=== PATIENT | female | born 1975 | race Caucasian/White ===

== ENCOUNTER → 2017-01-08 | Outpatient (CLI) | payer BC ==
[~2017-01-08] MED LIST: ASCA500; HYDCR1CL; OMEG10007 PO; PRENTAB26 PO
[2017-01-08 10:17] LABS: ALKALINE PHOSPHATASE 54 U/L (45-117); ALT/SGPT 23 U/L (12-78); AST/SGOT 16 U/L (15-37); BLOOD UREA NITROGEN 14 mg/dl (7-18); BUN/CREATININE RATIO 18.5 (10-20); CALCIUM 9.2 mg/dl (8.5-10.1); CARBON DIOXIDE 27 mmol/L (21-32); CHLORIDE 109 mmol/L (98-107); CREATININE 0.73 mg/dl (0.60-1.20); GLUCOSE 53 mg/dl (70-99); PHOSPHORUS 2.7 mg/dl (2.5-4.9); POTASSIUM 3.6 mmol/L (3.5-5.1); SODIUM 142 mmol/L (136-145)
[2017-01-13 04:25] LABS: JCV ANTIBODY NEGATIVE; JCV INDEX 0.12
--- NOTE | 2017-01-13 07:22 | CODING QUERY MEDICAL NECESSITY ---
SUPPORTING DIAGNOSIS NEEDED Dr. Duque, A supporting diagnosis is required for the test/procedure performed on this patient in order for us to be reimbursed by the patient's insurance. Please provide a supporting diagnosis for the following test/procedure listed below next to the test name along with your signature. *If there is no additional diagnosis for this patient that would support the following test/procedure please document that below next to the test/procedure. Test(s)/Procedure(s) that require a supporting diagnosis: * ([id number]) VITAMIN D ASSAY DIAGNOSIS: * ([id number]) B12 VITAMIN LEVEL DIAGNOSIS: DATE OF SERVICE: 01/08/17 Provider Signature: Date: Thank you Alessandro Fulton [facility] Information Management Once completed, please kindly fax back to [phone] For questions please call [phone]
== END | disposition home or self-care (01) ==
LOC: C.LAB 08:20
PROVIDERS: ATTEND Psychiatry & Neurology Neurology
DX: G35 Multiple sclerosis (principal); R79.89 Other specified abnormal findings of blood chemistry; E55.9 Vitamin D deficiency, unspecified; M81.0 Age-related osteoporosis without current pathological fracture

== ENCOUNTER → 2017-01-15 | Outpatient (CLI) | payer BC ==
--- NOTE | 2017-01-15 16:30 | DIAGNOSTIC IMAGING REPORT ---
RIGHT KNEE 3 VIEWS CLINICAL HISTORY: PAIN Right pain COMPARISON: None. DISCUSSION: The bones and joint spaces appear intact. There is no evidence of fracture, dislocation or bony disease. There is no evidence for soft tissue swelling. IMPRESSION: Negative study. Electronically signed by: Leon Dixon M.D. 01/15/2017 4:29 PM Dictated Date/Time: 01/15/2017 4:29 PM
== END | disposition home or self-care (01) ==
LOC: C.RADBC 15:37
PROVIDERS: ATTEND Family Medicine
DX: M25.561 Pain in right knee (principal)

== ENCOUNTER → 2017-03-31 | Outpatient (CLI) | payer BC ==
--- NOTE | 2017-04-01 12:45 | MAMMOGRAPHY REPORT ---
BILATERAL FIRST EVER DIGITAL SCREENING MAMMOGRAM TOMOSYNTHESIS WITH CAD: 03/31/2017 CLINICAL HISTORY: Baseline examination. TECHNIQUE: Bilateral breast tomosynthesis in addition to standard 2D mammography was performed. Curre nt study was also evaluated with a Computer Aided Detection (CAD) system. COMPARISON: No prior exams were available for comparison. BREAST COMPOSITION: There are scattered areas of fibroglandular density in both breasts. FINDINGS: There is a 15 x 16 x 19 mm circumscribed round to oval mass in the 9:00 posterior left laura ast. Although this could represent a cyst, definitive characterization with targeted ultrasound and possible additional mammographic views is recommended. There are scattered benign-appearing punctate microcalcifications bilaterally. No other suspicious ma ss, architectural distortion or cluster of microcalcifications is seen. IMPRESSION: ACR BI-RADS CATEGORY 0: INCOMPLETE EVALUATION: NEED ADDITIONAL IMAGING EVALUATION The circumscribed 19 mm mass in the left 9:00 breast needs additional evaluation. The patient will be called to schedule an appointment. Approximately 10% of breast cancers are not detected with mammography. A negative mammographic report should not delay biopsy if a clinically suggestive mass is present. Yuko Espinoza M.D. ay/:03/31/2017 16:12:29 Machine Staker: Vanessa PHILLIPS)(Raymundo), [facility] letter sent: Addl Imaging 0 BI-RADS Code: ACR BI-RADS Category 0: Incomplete Evaluation: Need Additional Imaging Evaluation
== END | disposition home or self-care (01) ==
LOC: C.MAMM 10:06
PROVIDERS: ATTEND Family Medicine
DX: Z12.31 Encounter for screening mammogram for malignant neoplasm of breast (principal); N63 Unspecified lump in breast

== ENCOUNTER → 2017-04-08 | Outpatient (CLI) | payer BC ==
--- NOTE | 2017-04-09 12:47 | MAMMOGRAPHY REPORT ---
ULTRASOUND OF LEFT BREAST: 04/08/2017 CLINICAL HISTORY: 42 year-old woman called back from baseline screening mammogram for a 19 x 16 x 15 mm circumscribed mass in the 9:00 left breast. Patient also reported deep nonfocal intermittent left breast pain and an electrical sensation near the edge of the breast that is not present today. COMPARISON: Comparison is made to exam dated: 03/31/2017 mammogram - [facility]. FINDINGS: Targeted ultrasound was performed throughout the left breast with particular attention to t he 9:00 axis in the area of mammographic mass. In the 9:00 left breast, periareolar to 1 cm from the nipple, there is a hypoechoic solid circumscribed mass measuring 15.2 x 9.4 x 16.3 mm. No significa nt increased vascularity. Orientation is parallel. This most likely represents a fibroadenoma, but definitive characterization with tissue sampling is recommended to exclude phyllodes. Additional ultrasound was performed throughout the remainder of the left breast for the pain describe d by the patient. In the 8:00 periareolar left breast, there is a superficial parallel hypoechoic so lid mass versus focal area of stromal fibrosis measuring 4.0 x 7.0 x 2.8 mm. A benign anechoic simpl e cyst is identified in the 12:00 periareolar left breast measuring 2.8 x 2.4 x 3.2 mm. No other piotr picious solid mass is seen. Pending benign pathology results from the biopsy in the 9:00 axis, would recommend a follow-up targeted ultrasound in the 8:00 periareolar left breast to ensure stability of the smaller hypoechoic mass. IMPRESSION: ACR BI-RADS CATEGORY 4A: LOW SUSPICION FOR MALIGNANCY - FOLLOW-UP RECOMMENDED 1. Ultrasound guided core biopsy is recommended for an indeterminate solid 16 mm mass in the 9:00 pe riareolar left breast, that could represent a fibroadenoma. The patient has MS and does not wish to have a biopsy marker clip placed during the biopsy. 2. Pending benign pathology results, recommend a follow-up targeted left breast ultrasound in the 8: 00 periareolar axis, to ensure stability of a parallel hypoechoic solid-appearing mass versus focal s tromal fibrosis measuring 4 x 7 x 3 mm. These results and recommendations were discussed with the patient and her at the time of the exam. She tentatively scheduled the left breast biopsy prior to leaving our department. Yuko Espinoza M.D. ay/:04/08/2017 14:19:10 Bisque Ware Dipper: Iris MARTINEZ(R)(M), [facility] letter sent: Abnormal 4/5 BI-RADS Code: ACR BI-RADS Category 4A: Low Suspicion For Malignancy
== END | disposition home or self-care (01) ==
LOC: C.MAMM 13:37
PROVIDERS: ATTEND Family Medicine
DX: N63 Unspecified lump in breast (principal); R92.2 Inconclusive mammogram

== ENCOUNTER → 2017-04-10 | Outpatient (CLI) | payer BC ==
--- NOTE | 2017-04-10 13:41 | Discharge Instructions ---
Discharge Instructions Procedure Procedure Date: Apr 10, 2017. Reason for visit: Left Mass. Discharge Discharge Date: Apr 10, 2017. Discharge Diagnosis: status post breast biopsy Instructions Activity Recommendations: Additional Limitations (see below) Return to School/Work: no limitations Recommended Home Diet: No Limitations Provider Instructions: ACTIVITY RECOMMENDATIONS: * No lifting, pushing, pulling or exercising the affected side for three days. RETURN TO SCHOOL/WORK: * You may return to work/school after the procedure, but do not perform any strenuous activities for 24 to 48 hours. MEDICATIONS: * Tylenol (two 325 mg) every four to six hours if needed for mild pain (if not allergic to Tylenol). DIET: * Resume previous diet. SPECIAL CARE INSTRUCTIONS: * Keep biopsy site dry for 24 hours. May shower after 24 hours, but do not soak (bathe) incision. * May remove Tegaderm (plastic patch) tomorrow AFTER showering. * Leave the steri-strips on for one week. Allow the steri-strips to fall off by themselves. If not off after one week, you may remove them. You may place a Bandaid crosswise over the strips, if desired. * Apply ice 10 minutes on and 10 minutes off as needed. * Wear a bra at bedtime to sleep more comfortably for 2-3 days. * Your referring physician should have the results after approximately 5 to 7 business days. * Call for unusual bleeding, fever, drainage, etc or if you have any questions call during normal business hours or after hours call Dr Henderson, . FOLLOW UP VISIT: Follow-up with Referring Physician as scheduled. Allergies Coded Allergies: No Known Allergies (Unverified , 07/17/14) Ruddy Chen Recommendations: Call your doctor if: * Temperature above 101 degrees * Pain not relieved by pain medicine ordered * There is increased drainage or redness from any incision * You have any unanswered questions or concerns. Your Doctors Instructions noted above were prepared by provider Ronna Henderson. Patient Signature Section: Patient Instructions Signature Page Lety Chuck Patient (or Guardian) Signature/Date: I have read and understand the instructions given to me by my caregivers. Caregiver/RN/Doctor Signature/Date: The above-named patient and/or guardian has received patient instructions on this date. + Original Patient Signature Page (only) stays with chart. Please make copy for patient.
--- NOTE | 2017-04-13 12:30 | MAMMOGRAPHY REPORT ---
THIS REPORT HAS BEEN AMENDED. ULTRASOUND GUIDED BIOPSY LEFT BREAST: 04/10/2017 CLINICAL HISTORY: Left 9:00 breast mass. PATIENT CONSENT: The procedure, risks and benefits were discussed with the patient and informed writt en consent was obtained. A timeout was performed immediately prior to the procedure. PROCEDURE DESCRIPTION: With ultrasound guidance, aseptic technique, and lidocaine as the local anesth etic (1% lidocaine to anesthetize the skin and 1% lidocaine with epinephrine to anesthetize the deepe r tissues), the mass of concern in the left 9:00 breast was sampled 3 times with a 14-gauge Achieve b iopsy needle. Direct pressure was applied to the site immediately post procedure and hemostasis was achieved. A biopsy marker clip was not placed due to patient request. The patient tolerated the pro cedure without complication. She was given wound care instructions. The specimens were sent to patho logy for analysis. COMPARISON: Comparison is made to exams dated: 04/08/2017 ultrasound and 03/31/2017 mammogram - [facility]. IMPRESSION: ULTRASOUND GUIDED BIOPSY Ultrasound guided core needle biopsy of the left 9:00 breast mass. A clip was not placed due to valerio ent request. The patient will receive pathology results from her referring provider. Pending benign pathology results, recommend follow-up ultrasound of the left breast in 6 months to reevaluate a sma ll hypoechoic mass in the left 8:00 breast. Ronna Henderson M.D. ah/:04/10/2017 13:43:40 Steel Molder: Laure Cadet, [facility] AMENDMENT: 04/15/2017 Ronna Henderson M.D. Pathology results from ultrasound guided biopsy of a left 9:00 breast mass were reviewed on 04/15/2017. 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 As recommended on the diagnostic report, recommend follow-up ultrasound of the left breast in 6 months to reevaluate a small hypoechoic mass in the left 8:00 breast.
== END | disposition home or self-care (01) ==
LOC: C.MAMM 13:10
PROVIDERS: ATTEND Family Medicine
DX: N63 Unspecified lump in breast (principal); D24.2 Benign neoplasm of left breast

== ENCOUNTER → 2017-08-21 | Outpatient (CLI) | payer BC | END | disposition home or self-care (01) | LOC: C.PAPS 14:10 | PROVIDERS: ATTEND Physician Assistant | DX: Z01.419 Encounter for gynecological examination (general) (routine) without abnormal findings (principal) ==